=== PATIENT | female | born 1960 | race Caucasian/White ===

== ENCOUNTER 2020-05-30 12:20 | Emergency (ER) | payer OTHER, SELFPAY ==
[2020-05-30 12:22] VITALS: BP 162/91; PULSE 114; RESP 16; TEMP 36.4; O2SAT 97; BMI 39.6
--- NOTE | 2020-05-30 12:35 | RAD_ITS ---
STUDY: X-RAY - RIGHT FOOT CLINICAL: Female, 60 years old. rolled her foot and ankle to the side, pain TECHNIQUE: 3 view(s) of the foot. COMPARISON: None. FINDINGS: Normal talus, calcaneus, and tarsal bones. Normal visualized subtalar, talonavicular, calcaneocuboid, tarsal and tarsometatarsal articulations. Normal metatarsi. Normal metatarsophalangeal joint of the great toe. Normal tibial and fibular sesamoid bones. Normal interphalangeal joint of the great toe. Normal phalanges of the great toe. Normal second through fifth metatarsophalangeal joints. Normal interphalangeal joints and phalanges of the lesser toes. The soft tissue structures are unremarkable. RAD/Foot min 3 Views IMPRESSION: Normal x-ray examination of the foot. Electronically Signed: Carrillo Sampson MD at 13:54 EDT , Service support ,
--- NOTE | 2020-05-30 12:35 | RAD_ITS ---
STUDY: X-RAY - RIGHT ANKLE REASON FOR EXAM: Female, 60 years old. rolled her foot and ankle to the side, pain TECHNIQUE: 3 view(s) of the ankle. COMPARISON: None. FINDINGS: Normal visualized distal tibia and fibula. Normal medial and lateral malleoli. Normal tibiotalar articulation and ankle mortise. Normal visualized talus and calcaneus. The visualized subtalar, talonavicular, calcaneocuboid and tarsal articulations are normal. The soft tissue structures are unremarkable. RAD/Ankle min 3 Views IMPRESSION: Normal x-ray examination of the ankle. Electronically Signed: Carrillo Sampson MD at 13:53 EDT , Service support ,
--- NOTE | 2020-05-30 12:43 | ED.DCSUM_ITS ---
History of Present Illness Chief Complaint: Lower Extremity Injury Narrative: Patient presenting for evaluation secondary to a lower extremity injury. Patient states that she was walking out of the grocery store and she suffered a plantar inversion injury of her right foot and ankle. Patient states that she is able to bear some weight with difficulty. She has a moderate to severe amount of pain in her foot and ankle. She denies falling, hitting her head, any loss of consciousness. Pain is moderate to severe. View of systems otherwise negative. Past Medical History - Allergies and Home Meds Allergies/Adverse Reactions: Allergies mesalamine [From Asacol] Allergy (Verified 05/30/20 12:21) Rash Sulfa (Sulfonamide Antibiotics) Allergy (Verified 05/30/20 12:21) Rash Primary Care Physician: Giovani Krishnamurthy MD [Primary Care Provider] - Prior records reviewed: Yes Past Medical History: - - Hypertension, hyperlipidemia, hypothyroidism Surgical History: noncontributory Lives: Spouse/ Significant Other Smoking Status: Former smoker Alcohol: None Drugs: None Review of Systems All systems negative except as indicated General: Denies: Chills, Fever, Sweats Eyes: Denies: Visual changes - bilaterally, Diplopia ENT: Denies: Rhinorrhea, Sore throat Cardiovascular: Denies: Chest pain, Palpitations Respiratory: Denies: Dyspnea, Cough, Dyspnea on exertion Gastrointestinal: Denies: Abdominal pain, Nausea, Vomiting, Diarrhea, Melena, Hematochezia Genitourinary: Denies: Dysuria, Hematuria, Frequency Musculoskeletal: Reports: Extremity Pain Skin: Denies: Rash, Wounds Neurological: Denies: Headache, Weakness, Numbness Physical Exam Vital Signs/Narrative: Vital Signs Temp Pulse Resp BP Pulse Ox 05/30/20 12:22 97.6 F L 114 H 16 162/91 H 97 Inital Vital Signs reviewed: Yes - Extremity Exam Right Ankle: - - Examination the patient's right lower extremity shows no pain of the proximal fibular head. There is significant pain over the lateral malleolus with very minimal swelling. No pain over the medial malleolus. Limi malgorzata range of motion secondary to pain, no derangements noted of the patient's Achilles tendon, negative drawer test. There is some dorsal midfoot tenderness but no tenderness over the fifth metatarsal head. Normal distal pulses and sensation. General: Well nourished, Well developed Head: Normocephalic, Atraumatic Eyes: EOMI ENT: No Trauma, Moist Mucous Membranes Neck: Full ROM Cardiovascular: Regular rhythm, No murmurs, Tachycardia Respiratory: No distress, CTA bilaterally, Chest nontender Abdomen: Soft, Nontender Skin: Normal color, No rash Neurological: Alert, Oriented x3, Cranial nerves II-XII grossly intact, Normal Strength, Normal Sensation Psychological: Normal affect Diagnostic/Tx/Re-eval Clinical Impression(s) from Imaging Studies Ankle X-Ray 05/30/20 12:35 IMPRESSION: Normal x-ray examination of the ankle. Electronically Signed: Carrillo Sampson MD at 13:53 EDT , Service support , Foot X-Ray 05/30/20 12:35 IMPRESSION: Normal x-ray examination of the foot. Electronically Signed: Carrillo Sampson MD at 13:54 EDT , Service support , - Medical Decision Making Patient presented secondary to a right foot and ankle injury. Primary and secondary surveys showed only injuries to those areas, x-rays were obtained. 3 view of the ankle and foot by my personal review as well as radiology is negative for any acute fracture. Patient at this point has an ankle sprain. She will be provided with an Fareed wrap and a Aircast. She Blake has crutches. She was recommended range of motion exercises, and follow-up with primary care as needed. ED Disposition - Plan for ED Patient: Disposition: Home or Assisted Living Diagnosis: Right ankle sprain Instructions: ED Sprain Ankle Referrals: Giovani Krishnamurthy MD [Primary Care Provider] - As Needed
[2020-05-30 14:45] VITALS: RESP 16
== END 2020-05-30 14:47 | disposition home or self-care (01) ==
PROVIDERS: Emergency Provider Emergency Medicine; PCP Family Medicine
DX: S93.401A Sprain of unspecified ligament of right ankle, initial encounter (principal); X50.1XXA Overexertion from prolonged static or awkward postures, initial encounter; Y93.01 Activity, walking, marching and hiking; Y92.9 Unspecified place or not applicable; I10 Essential (primary) hypertension; E03.9 Hypothyroidism, unspecified; E78.5 Hyperlipidemia, unspecified; Z79.899 Other long term (current) drug therapy; Z87.891 Personal history of nicotine dependence
CPT/HCPCS: 73610; 73630; 99283